=== PATIENT | female | born 1955 | race Caucasian/White ===

== ENCOUNTER 2017-06-14 14:13 | Emergency (ER) | payer BC ==
[~2017-06-14 14:13] MED LIST: AMBIEN10 MG PO; APAP/HYDROCODON1 T13 PO; ATENOLOL25 MG PO; ATIVAN1 MG PO; ATIVAN2 MG PO; BLOOD GLUCOSE1 EACH MC; COLACE100 MG PO; DONNATAL1 TAB PO; GLIPIZIDE2.5 M1 PO; KROGER NIC21 MG/24 H; LEVO-T112 MCG PO; LEXAPRO10 MG PO; LEXAPRO5 M1 PO; NIC21 TD; OMEPRAZOLE40 M1 PO; PRI20 PO; PROTONIX40 MG PO; REGLAN10 M1 PO; SIMVASTATIN10 M1 PO; SIMVASTATIN20 M1 PO; TRAZODONE100 MG PO; ULTRAM50 MG PO
[2017-06-14 15:04] LABS: microscopic required? NO
[2017-06-14 15:16] LABS: BASOPHIL % 1.3 % (0-2); PLATELET COUNT 276 x10^3mcL (130-400)
[2017-06-14 15:21] LABS: urine erythrocyte NEGATIVE (NEGATIVE)
[2017-06-14 15:24] LABS: CALCIUM 9.3 mg/dL (8.5-10.1); CARBON DIOXIDE 18.6 mmol/L (21-32); CHLORIDE SERUM 104 mmol/L (98-107); GFR1 > 60 mL/min; GLUCOSE SERUM 266 mg/dL (74-106); POTASSIUM SERUM 4.3 mmol/L (3.5-5.1); SODIUM SERUM 137 mmol/L (136-145)
[2017-06-14 15:35] LABS: AMPHETAMINE QUAL UR NONE DETECTED (NEG <=1000)
[2017-06-14 15:37] LABS: ALKALINE PHOSPHATASE 109 U/L (46-116); ALT/SGPT 82 U/L (14-59); AMYLASE 31 U/L (25-115); AST/SGOT 55 U/L (15-37); BILIRUBIN TOTAL 0.55 mg/dL (0.20-1.00); HDL CHOLESTEROL 41 mg/dL (40-60); LIPASE 130 IU/L (73-393); T4(THYROXINE) 10.1 ug/dL (4.7-13.3); TOTAL PROTEIN, SERUM 7.9 g/dL (6.4-8.2)
[2017-06-14 15:46] LABS: CHOLESTEROL 211 mg/dL (<200)
[2017-06-14 17:11] VITALS: BP 136/90
== END 2017-06-14 17:11 | disposition home or self-care (01) ==
LOC: ED 14:13
PROVIDERS: Emergency Medicine
DX: G44.89 Other headache syndrome (principal); J01.90 Acute sinusitis, unspecified; R07.89 Other chest pain; E11.9 Type 2 diabetes mellitus without complications; I10 Essential (primary) hypertension; E78.00 Pure hypercholesterolemia, unspecified; E03.9 Hypothyroidism, unspecified; Z88.0 Allergy status to penicillin; Z88.5 Allergy status to narcotic agent
CPT/HCPCS: 36415; 83880; J1200; J2765